=== PATIENT | female | born 1950 | race Caucasian/White ===

== ENCOUNTER 2016-10-03 11:01 | Inpatient (IN) | payer MEDICARE ==
[~2016-10-03] VITALS: Ht 170.2 cm; Wt 67.4 kg
[~2016-10-03 11:01] MED LIST: HYDR50CA3 PO; LEVO125T6 PO; OXYC10TA8 PO; SERT100T9 PO; SERT50TA9 PO
[2016-10-03 11:07] VITALS: BP 140/85; PULSE 80; RESP 16; O2SAT 96
[2016-10-03] MEDS ORDERED: DONE10TA42 PO (11:17)
[2016-10-03] MEDS ORDERED: OXYC15TA79 PO (11:17)
[2016-10-03] MEDS ORDERED: HYDR-656 PO ×2 (11:17→18:01)
[2016-10-03] MEDS ORDERED: BUSP15TA3 PO (11:17)
[2016-10-03] MEDS ORDERED: FLUT16SP NOSTRIL (11:17)
--- NOTE | 2016-10-03 11:48 | ED.REPORT ---
HPI-Seizure Date of Service Oct 03, 2016 ED Provider: Danie Olmedo PA-C Stefany is a 65-year-old female with a history of dementia, hypothyroidism, depression, anxiety, back pain who presents with a chief complaint of confusion and a possible seizure. Patient's daughter reports that the patient appeared to be very confused this morning at approximately 0630, was incontinent of urine and pointed out a laceration to her tongue and lip. No seizure was witnessed. EMS was contacted and the patient was assessed by paramedics. Transport was declined. Daughter reports increased confusion continues until presentation. The patient has had declining cognition for approximately the last year, but she is thought to be slightly worse than baseline of presentation. She also has a history of possible seizures. Patient admits to a wet cough but denies other complaints including numbness, tingling, weakness, fever, chills, urinary symptoms, abdominal pain, vomiting, diarrhea, chest pain , headache, vision changes. Admits "smoking a lot of marijuana" but denies other drugs or alcohol. Daughter reports the patient has smoked marijuana for many years, and is unaltered from baseline. Review of records indicates a normal ECG approximately one month ago and a normal MRI approximately 6 months ago. Daughter reports she is under great deal of stress since she lost her 3 years ago and has lost 200 pounds in that time. Nursing Notes Stated Complaint: CONFUSED, LACERATION IN TONGUE Chief Complaint: Neuro Symptoms/ Deficits Nursing Notes Reviewed: Yes Allergies: Coded Allergies: codeine (Verified Allergy, Mild, SOME GI UPSET, 10/03/16) Scheduled Buspirone (Buspirone) 15 Mg Tablet 15 MG PO BID Donepezil (Donepezil) 10 Mg Tablet 20 MG PO HS Ferrous Sulfate (Ferrous Sulfate) 325 Mg Tablet 325 MG PO DAILY Fluticasone Propionate (Fluticasone Propionate Nasal) 16 Gm [place].susp 1 SPRAYS NOSTRIL DAILY Levothyroxine (Levothyroxine) 125 Mcg Tablet 125 MCG PO DAILY Sennosides/Docusate Sodium (Stool Softener-Stimulant Lax) 8.6 Mg-50 Mg Tablet 1 EACH PO DAILY Sertraline HCl (Sertraline) 100 Mg Tablet 100 MG PO BID hydrOXYzine Hcl (HydrOXYzine Hcl) 25 Mg Tablet 25 MG PO QAM Scheduled PRN hydrOXYzine Hcl (HydrOXYzine Hcl) 25 Mg Tablet 25 MG PO BID PRN PRN prn oxyCODONE (oxyCODONE) 15 Mg Tablet 15 MG PO TID PRN PRN For Pain General Time Seen by Provider: 11:19 Chief Complaint Chief Complaint: Other (confusion, possible seizure.) Past Medical History Past Medical History Reports: Depression Smoking History Current Every Day Smoker Review of Systems General: Denies fever, chills, malaise. HEENT: Denies congestion, headache, sore throat. Respiratory: Admits cough. Denies dyspnea,, shortness of breath, wheezing. Cardiovascular: Denies chest pain, palpitations. Gastrointestinal: Denies vomiting, diarrhea, abdominal pain. Genitourinary: Denies frequency, urgency, dysuria, hematuria. Otherwise as noted in HPI. Physical Exam General: Well appearing, well developed, well nourished, no acute distress. Head: Atraumatic, normocephalic. No mastoid tenderness. Eyes: No scleral icterus or injection. No discharge. PERRL. Vision grossly intact. Ears: Pinna and tragus nontender with manipulation. External auditory canal patent, atraumatic and without discharge. Tympanic membrane nascimento, shiny and translucent without fluid, bulging, retraction or perforation. Hearing grossly intact. Nose: Symmetrical, nares patent without discharge. No frontal or maxillary sinus tenderness. Mouth/pharynx: Small ecchymosis on the inner right upper lip. Approximately 1 cm laceration on the superior aspect of the right tongue with a corresponding ecchymosis on the inferior aspect. Maxillary dentures present, mucus membranes moist. Mandibular molars are absent. Tonsils 2+ and symmetrical, uvula midline. Pharynx noninjected, no cobblestoning or discharge. Voice clear. Neck: No tenderness or lymphadenopathy. Trachea midline. Respiratory: Regular rate and rhythm. Breath sounds present, clear to auscultation and equal bilaterally. No respiratory distress. No increased work of breathing, speaks in complete sentences. Cardiovascular: Regular rate and rhythm, without murmur, gallop or rub. No pedal edema. Gastrointestinal: Abdomen flat and non-tender without guarding or rebound. Bowel sounds normoactive. Skin: Warm and dry. Neurological: Normal gait, toe gait, Romberg. Negative pronator drift. Finger- nose normal. Cranial nerves: Vision grossly intact, PERRL, EOMI. Facial motion symmetrical, sensation to light touch over forehead, maxilla and mandible present and equal B /L. Voice clear and fluent, no drooling/pooling of saliva, uvula rises midline. Psychological: Intermittently disoriented, initially asking "where am I?" And referring to a alley tender on the wall when asked about her symptoms saying "I just do not be part of that". He has difficulty explaining why she is there. Later in the interview, however she becomes Alert and oriented x3 with Speech appropriate, linear and logical. Behavior appropriate. Initial Vital Signs Vital Signs (First) Date Time Temp Pulse Resp B/P Pulse Ox O2 Delivery O2 Flow Rate FiO2 10/03/16 11:07 36.2 80 16 140/85 96 Room Air 10/03/16 16:00 3 Initial VS: Reviewed, Vital signs normal Interpretation & Diagnostics Lab Results Interpretation Result Diagram: 10/03/16 1200 10/03/16 1200 Test 10/03/16 11:41 10/03/16 11:49 10/03/16 12:00 10/03/16 15:14 Urine Opiates Screen Negative Urine Methadone Screen Negative Urine Barbiturates Screen Negative Urine Amphetamines Screen Negative Urine Benzodiazepines Screen Negative Urine Cocaine Metabolite Screen Negative Urine Cannabinoids Screen Positive Urine Color Yellow (YELLOW) Urine Appearance Hazy (CLEAR,HAZY) Urine pH 6.5 (5.0-8.0) Urine Specific [place] 1.020 (1.003-1.035) Urine Protein Negativemg/dL (NEG,TRACE) Urine Glucose (UA) Negativemg/dL (NEGATIVE) Urine Ketones Negativemg/dL (NEGATIVE) Urine Occult Blood Trace (NEGATIVE) Urine Nitrite Negative (NEGATIVE) Urine Bilirubin Negative (NEGATIVE) Urine Urobilinogen Normalmg/dL (NORMAL) Urine Leukocyte Esterase Trace (NEGATIVE) Urine RBC 0-2/hpf (0-2) Urine WBC 6-10/hpf (0-5) Urine Epithelial Cells Occasional/hpf (NONE-MOD) Urine Crystals None seen (NONE SEEN) Urine Bacteria Moderate/hpf (NONE-FEW) Urine Hyaline Casts None/lpf (NONE) Urine Granular Casts None seen (NONE SEEN) Urine Waxy Casts None seen (NONE SEEN) Urine Red Blood Cell Casts None seen (NONE SEEN) Urine White Blood Cell Casts None seen (NONE SEEN) Urine Mucus Present (None Seen) Urine Trichomonas None seen (NONE SEEN) Urine Yeast None (NONE SEEN) Urinalysis Comment None Urine Culture Reflexed Indicated White Blood Count 20.3th/mm3 (3.8-10.1) Red Blood Count 5.98mil/mm3 (3.90-5.20) Hemoglobin 17.4g/dL (12.0-15.6) Hematocrit 48.8% (35.0-46.0) Mean Corpuscular Volume 81.6fL (81-100) Mean Corpuscular Hemoglobin 29.1pg (27.0-35.0) Mean Corpuscular Hemoglobin Concent 35.7% (32.0-37.0) Red Cell Distribution Width 17.6% (12.3-15.4) Platelet Count 317bil/L (150-400) Neutrophils (%) (Auto) 78.8% (40-74) Lymphocytes (%) (Auto) 11.7% (14-46) Monocytes (%) (Auto) 8.1% (4-12) Eosinophils (%) (Auto) 0.4% (0-5) Basophils (%) (Auto) 0.3% (0-3) Sodium Level 137mEq/L (134-144) Potassium Level 4.2mEq/L (3.5-5.2) Chloride Level 99mEq/L (97-108) Carbon Dioxide Level 20mmol/L (18-29) Blood Urea Nitrogen 16mg/dL (8-27) Creatinine 0.54mg/dL (0.57-1.00) Estimat Glomerular Filtration Rate 163mL/min (>59) Glucose Level 121mg/dL (60-99) Calcium Level 9.4mg/dL (8.5-10.1) Total Bilirubin 0.4mg/dL (0.0-1.2) Aspartate Amino Transf (AST/SGOT) 27U/L (0-50) Alanine Aminotransferase (ALT/SGPT) 17U/L (0-32) Alkaline Phosphatase 87U/L (25-165) Total Protein 6.9g/dL (6.4-8.4) Albumin 4.2g/dL (3.4-5.0) Procalcitonin 0.03ng/mL (0.00-0.08) Thyroid Stimulating Hormone (TSH) 1.350uIU/mL (0.450-4.500) Lactic Acid Level 8.7mmol/L (0.4-2.0) CT Head Interpretation PROCEDURE: CT BRAIN WITHOUT CONTRAST ([id number]) INDICATIONS: possible seizure IMPRESSION: No acute intracranial disease process. Re-Eval/Medical Decision Med Decision/Clinical Course I discussed this case with Dr. Trinidad. 65-year-old female with a chief complaint of confusion which appears to follow possible episode of seizure. Daughter reports the patient emerged from her room quite confused, having been incontinent of urine and bit her tongue approximately 6 hours prior to presentation. Daughter reports increased confusion since that time. Patient has been treated for declining cognition and possible seizures for the last year or so. She is followed by Dr. Flores for neurology. Records indicate a normal MRI approximately 6 months ago as well as normal EEG approximately one month ago. The patient is taking Donepezil. She has no other physical complaints. Admits to smoking "a lot of" marijuana. The patient is initially extremely confused, asking where she is, incorporating the content of a alley tender on the wall into her responses. She appears not recalling events that led up to her presentation. This however seems to pass quite quickly. She soon becomes A&O 3 and able to answer history questions for herself. She does not, however recall the events of this morning. She states that she was going to bed, and then coming to the hospital. She does not recall interacting with paramedics or having a seizure this morning. Physical examination reveals a small laceration on the right side of her tongue as well as an ecchymosis on her right upper lip. Neurological examination is normal. CBC reveals leukocytosis at 20.3 with left shift. it also reveals polycythemia with a hematocrit of 48.8 and hemoglobin of 17.4. RDW 17.6. Urinalysis reveals trace occult blood, trace leukocyte esterase 6-10 white blood cells, moderate bacteria. CMP is within acceptable limits. TSH is normal. Head CT is normal. Patient had an episode of rigidity and shaking in the emergency department followed by extended period of agitation and disorientation. She was seen by Dr. Trinidad. Treated with first 2 mg a total of 4 mg of lorazepam as well as 5 mg of Haldol. Ordered a lactate, blood cultures. Provided a dose of Zosyn out of concern for possible urosepsis. Lactate returned 8.7. We believe this is urosepsis versus dementia, epilepsy. Discussed the case with hospitalist who accepts admission. Re-Evaluation/Progress #1: Time of Eval: 13:40 Re-Evaluation/Progress Note: Patient requires repeated reorientation to recent events. Complains of abdominal pain, which she had not before. Right upper quadrant tenderness continues. She requests "something for pain" Re-Evaluation/Progress #2: Time of Eval: 15:05 Re-Evaluation/Progress Note: Patient had a brief episode of global rigidity and tremors followed by approximately 10 minutes of agitation and disorientation. Prior to this episode she stated "I need something for my anxiety." Episode resolved with first 2 mg then a total of 4 mg of lorazepam as well as 5 mg of Haldol. Initiated IV, blood cultures, lactate, placed patient on monitor. Discharge & Departure Referrals: Saw Almonte MD (PCP) EDSupervising Provider for APC: Solomon Esteban MD Attending Statement I discussed case with MICHAEL Olmedo. I saw and evaluated patient independently. In brief, 65-year-old female admitted for altered mental status, sepsis, presumed urinary source. Admit hospitalist. 30 mL's per kilo bolus given. Zosyn for urinary source. Danie Olmedo PA-C Oct 03, 2016 11:48 Solomon Esteban MD Oct 03, 2016 18:18
[2016-10-03 12:01] LABS: APPEARANCE,URINE HAZY (CLEAR,HAZY); COLOR,URINE YELLOW (YELLOW); OCCULT BLOOD,URINE TRACE (NEGATIVE); PH,URINE 6.5 (5.0-8.0); UROBILINOGEN,URINE NORMAL (NORMAL)
[2016-10-03 12:36] LABS: BASOPHILS % (AUTO) 0.3 % (0-3); EOSINOPHILS % (AUTO) 0.4 % (0-5); MONOCYTES % (AUTO) 8.1 % (4-12); Mean Corpuscular Hemoglobin 29.1 pg (27.0-35.0); Mean Corpuscular Volume 81.6 fL (81-100); NEUTROPHILS % (AUTO) 78.8 % (40-74); Platelet Count 317 bil/L (150-400)
[2016-10-03] MEDS ORDERED: TdaP Vaccine 0.5 mL Inj IM ONE (12:55)
--- NOTE | 2016-10-03 13:15 | DRSVH ---
PROCEDURE: CT BRAIN WITHOUT CONTRAST ([id number]) INDICATIONS: possible seizure TECHNIQUE: Noncontrast 4.5 mm thick angled axial sections acquired from the foramen magnum to the vertex, with c oronal reformats. COMPARISON: [facility], MR, MR BRAIN WO CON, 04/21/2016, 10:48. FINDINGS: Image quality: Excellent. CSF spaces: Basal cisterns are patent. No extra-axial fluid collections. Ventricles are normal in size and shape. Brain: No midline shift. No intracranial masses or hemorrhage. Foreman-white matter interface is norm al. Skull and face: Calvarium and visualized facial bones are intact, without suspicious lesions. Incide ntal note of hyperostosis frontalis. Sinuses: Visualized sinuses and mastoids are clear. IMPRESSION: No acute intracranial disease process. Dictated by: Marbella Oro MD, PhD on 10/03/2016 at 13:09 Approved by: Marbella Oro MD, PhD on 10/03/2016 at 13:13
[2016-10-03] MEDS ORDERED: Haloperidol 5 mg/mL Inj ONE (14:58)
[2016-10-03] MEDS ORDERED: Piperacillin-Tazo 3.375 Gm Inj 3.375 GM in Dextrose 5% Minibag Plus 50 ML IV ONE (15:00)
[2016-10-03 16:00] VITALS: BP 120/59; PULSE 80; RESP 20; O2SAT 94
[2016-10-03] MEDS ORDERED: 0.9% Sodium Chloride 1,000 ML IV SCH (16:45)
[2016-10-03] MEDS ORDERED: FERR-83 PO (18:01)
[2016-10-03] MEDS ORDERED: SENN-169 PO (18:01)
[2016-10-03] MEDS ORDERED: SERT100T9 PO (18:01)
[2016-10-03] MEDS ORDERED: Alum-Mag Hydrox-Simeth 30 mL Suspension PO PRN (18:05)
[2016-10-03] MEDS ORDERED: Polyethylene Glycol (PEG) 17 Gm Powder PO PRN (18:05)
[2016-10-03] MEDS ORDERED: Ondansetron 2 mg/mL 2 mL Inj IVPUSH PRN (18:05)
[2016-10-03 19:09] VITALS: BP 131/63; PULSE 89; RESP 20; O2SAT 97
--- NOTE | 2016-10-03 20:00 | NUR ---
Arrival Pt arrived on the floor awake, restless and confused. Oriented to self and her birthday but confuse at times. Family came up and able to provide h&p for patent. Terence alarm on.
[2016-10-03 20:12] VITALS: BP 124/76; PULSE 83; RESP 18; O2SAT 95
[2016-10-03 20:14] VITALS: PULSE 73
[2016-10-03 20:16] VITALS: BP 124/76; PULSE 83; RESP 18; O2SAT 95
[2016-10-03] MEDS: 0.9% Sodium Chloride 1,000 ML IV SCH (20:54)
[2016-10-03] MEDS ORDERED: hydrOXYzine Pamoate 25 mg Capsule PO PRN (21:15)
--- NOTE | 2016-10-03 21:27 | PCM.HPMED ---
Subjective Date of Service Oct 03, 2016 Primary Provider: Admitting Physician: Sanjay Arteaga MD Primary Care Physician: Saw Almonte MD Attending Physician: Sanjay Arteaga MD Chief Complaint: AMS . Seizure History of Present Illness: Most informations are retrieved form medical record and per my conversation with the ER Physician . Patient is unable to provide any information at this time Stefany is a 65-year-old female with a history of dementia, hypothyroidism, depression, anxiety, back pain who presents with a chief complaint of confusion and a possible seizure. Patient's daughter reports that the patient appeared to be very confused this morning at approximately 0630, was incontinent of urine and pointed out a laceration to her tongue and lip. No seizure was witnessed. EMS was contacted and the patient was assessed by paramedics. Transport was declined. Daughter reports increased confusion continues until presentation. The patient has had declining cognition for approximately the last year, but she is thought to be slightly worse than baseline of presentation. She also has a history of possible seizures. Patient admits to a wet cough but denies other complaints including numbness, tingling, weakness, fever, chills, urinary symptoms, abdominal pain, vomiting, diarrhea, chest pain , headache, vision changes. Admits "smoking a lot of marijuana" but denies other drugs or alcohol. Daughter reports the patient has smoked marijuana for many years, and is unaltered from baseline. Review of records indicates a normal ECG approximately one month ago and a normal MRI approximately 6 months ago. Daughter reports she is under great deal of stress since she lost her 3 years ago and has lost 200 pounds in that time. Review of Systems: Review of system cannot be obtain . Patient is very confused , somnolent and possibly post -ictal Allergies Coded Allergies: codeine (Verified Allergy, Mild, SOME GI UPSET, 10/03/16) Home Medications Buspirone (Buspirone) 15 Mg Tablet 15 MG PO BID Donepezil (Donepezil) 10 Mg Tablet 20 MG PO HS Ferrous Sulfate (Ferrous Sulfate) 325 Mg Tablet 325 MG PO DAILY Fluticasone Propionate (Fluticasone Propionate Nasal) 16 Gm [place].susp 1 SPRAYS NOSTRIL DAILY Levothyroxine (Levothyroxine) 125 Mcg Tablet 125 MCG PO DAILY Sennosides/Docusate Sodium (Stool Softener-Stimulant Lax) 8.6 Mg-50 Mg Tablet 1 EACH PO DAILY Sertraline HCl (Sertraline) 100 Mg Tablet 100 MG PO BID hydrOXYzine Hcl (HydrOXYzine Hcl) 25 Mg Tablet 25 MG PO QAM Scheduled PRN hydrOXYzine Hcl (HydrOXYzine Hcl) 25 Mg Tablet 25 MG PO BID PRN PRN prn oxyCODONE (oxyCODONE) 15 Mg Tablet 15 MG PO TID PRN PRN For Pain PMH Depression, Seizure? , Dementia Surgical History ankle surgery. Family History Unable to obtain Social History Hx Alcohol Use: Yes ("occasional") Hx Substance Use: Yes (daily marijuana) Smoking Status: Current Every Day Smoker (Patient smoke marihuana 4-5 times daily ) Exam Vital Signs Vital Sign - Last Date Time Temp Pulse Resp B/P Pulse Ox O2 Delivery O2 Flow Rate FiO2 10/03/16 20:16 36.9 83 18 124/76 95 Room Air 10/03/16 16:00 3 Exam General: Well nourished female. Ill appearing, [place], no acute distress. Head: Atraumatic, normocephalic.Sclerae is anicteric Eyes: PERRL. Mouth : Moist oral mucosae . Neck: No tenderness or lymphadenopathy. Trachea midline. Chest : Normal respiratory effort .No deformity, no chest wall tenderness Lung : . Breath sounds present, clear to auscultation and equal bilaterally. Heart : S1S2, rate and rhythm Abdomen : flat and non-tender without guarding or rebound. Bowel sounds normoactive. Ext : No edema, no cyanosis Neurological: Confused and drowsy . Patient moves all extremities Skin: Warm and dry.No rash, no ulcer Lab and Diagnostics Result Diagram: 10/03/16 1200 10/03/16 1200 X-Rays, CTs and MRIs Head CT scan reviewed : No acute intracranial disease process. Assessment & Plan 1. Acute toxic encephalopathy 2. Sepsis : source UTI 3. UTI 4. Seizure 5. Cannabinoids Abuse 6. Major Depression. Telemetry monitoring . Seizure and fall precaution . Start Keppra for seizure prophylaxis . Consult Neurology . Patient has negative Ct scan on presentation. MRI done recently as investigation regarding dementia was negative Ativan PRN for seizure Start IVF : NS at 100 ml/hr hydration. Ceftriaxone 1 gr IV daily for UTI. Patient received Zosyn in ER x one dose . Blood culture and urine culture are in process Heparin for DVT prophylaxis . Home medications reviewed and reconciled May need psychiatric evaluation for major depression , preferably as outpatient Plan of care to be adjusted as per clinical course VTE Prophylaxis: Sub-Q Heparin (Unfractionated) Resuscitation Status: CPR: Attempt Resuscitation Time spent 75 minutes Sanjay Arteaga MD Oct 03, 2016 21:27
[2016-10-03] MEDS ORDERED: cefTRIAXone Inj 1,000 MG in Dextrose 5% Minibag Plus 50 ML IV SCH (21:45)
[2016-10-03] MEDS: BusPIRone 15 mg Dividose Tablet PO SCH (22:37)
[2016-10-04 00:48] VITALS: BP 112/68; PULSE 71; O2SAT 95
[2016-10-04] MEDS: Heparin 5,000 Unit/mL Inj SUBQ SCH ×3 (00:55→17:23)
[2016-10-04 02:34] VITALS: PULSE 68
[2016-10-04] MEDS ORDERED: levETIRAcetam Inj 1,000 MG in IV Premix 1 EACH IV ONE (03:35)
[2016-10-04 03:43] LABS: BASOPHILS % (AUTO) 0.2 % (0-3); EOSINOPHILS % (AUTO) 0.9 % (0-5); MONOCYTES % (AUTO) 10.3 % (4-12); Mean Corpuscular Hemoglobin 28.9 pg (27.0-35.0); NEUTROPHILS % (AUTO) 72.9 % (40-74); Platelet Count 238 bil/L (150-400)
[2016-10-04] MEDS: 0.9% Sodium Chloride 1,000 ML IV SCH ×2 (04:02→08:04)
[2016-10-04 04:32] VITALS: BP 112/70; PULSE 68; O2SAT 95
--- NOTE | 2016-10-04 06:08 | NUR ---
Telemetry/Mentation Pt oriented to self,family and answers questions appropriately most of the times. She gets confuse at times and needs reorientation. She does not remember to use call light for assistance and can be impulsive at times. [place] bed alarm on. Telemetry SR in 60s. K level this am 3.3. made aware with new order noted.
[2016-10-04] MEDS ORDERED: Potassium Chloride 20 mEq SR Tablet PO ONE (06:10)
[2016-10-04] MEDS: Fluticasone 0.05% 15 Spray/2 Gm 16 Gm Nasal Spray NOSTRIL SCH ×2 (08:30→08:41)
[2016-10-04] MEDS: BusPIRone 15 mg Dividose Tablet PO SCH ×2 (08:43→20:25)
[2016-10-04] MEDS: Senna-Docusate 8.6-50 mg Tablet PO SCH (08:43)
[2016-10-04] MEDS: hydrOXYzine Pamoate 25 mg Capsule PO SCH (08:43)
[2016-10-04 09:34] VITALS: BP 148/84; PULSE 70; RESP 22; O2SAT 94
--- NOTE | 2016-10-04 11:34 | NUR ---
Wound Care Asked to see this pleasant 65 yo female admitted after seizure, area of blanchable erythema at left elbow is 5 cm in circumference likely secondary to her fall during seizure, does not have wound care needs at this time.,
--- NOTE | 2016-10-04 13:24 | CONS ---
[address] [address] CONSULTATION REPORT PATIENT: LUCI BARBOZA : 1950 MR#: [id number] ADMIT: 10/03/2016 JOB ID: [id number] DATE OF SERVICE: 10/04/2016 NEUROLOGY CONSULTATION: REQUESTING PHYSICIAN: Dr. Connie Dockery for seizures. HISTORY OF PRESENT ILLNESS: The patient is a 65-year-old female, who I have seen once as an outpatient following an isolated seizure. At the time there was progressive memory impairment also noted, which was confirmed by her daughter, Mary. Today she presents with a witnessed generalized seizure following an episode of tongue biting and confusion at [facility] where she lives. Her daughter, Dianelys Meredith, is at the bedside and helps to provide the history of the events. She has been having fluctuating confusional spells throughout the day, possibly more than usual. She was called by [facility] after her mother was noted to be confused and have a lacerated tongue with loss of urine at approximately 6:30 in the morning. Although EMS was contacted, the patient declined to be transported. Her daughter stayed with her the rest of the morning convincing her mother to come to the hospital. Two hours after arrival, the patient reported that she needed something for her anxiety and shortly afterward had an episode of witnessed rigidity and tremors lasting approximately 10 minutes after which she was agitated and disoriented. Her daughter reports this as a generalized tonic-clonic seizure. She is a CARE NURSE RN. Laboratory studies showed elevated lactic acid and evidence of a urinary tract infection. The patient has history of frequent UTIs. Her white count was also noted to be elevated. The patient was loaded with levetiracetam 1000 mg. She has been somnolent but otherwise no additional seizures or confusional episodes have been witnessed. A neurology consultation was requested to manage seizures. The patient had an EEG completed as an outpatient on September 11, 2016 which I have personally read as negative. Previous MRI of the brain completed on April 21, [address] Almonte showed no acute intracranial process. A head CT was done in the emergency department which shows no acute findings. The patient had an episode similar to the one described yesterday one year ago with tongue biting and urination but no additional seizures since then or prior to that. Her past medical history, social history and family history were reviewed in the note dated June 27, 2016 from [facility]. No changes to report. SOCIAL HISTORY: She does use daily marijuana which was noted on her tox screen today. HOME MEDICATIONS: 1. Buspirone. 2. Donepezil 20 mg daily. 3. Iron. 4. Fluticasone nasal spray. 5. Levothyroxine. 6. Senna. 7. Sertraline. 8. Hydralazine. HOSPITAL MEDICATIONS: Include: 1. 1000 mg of levetiracetam. 2. Ceftriaxone. 3. P.r.n. lorazepam and oxycodone. REVIEW OF SYSTEMS: Is as per the history of present illness. All other systems were reviewed and reported as negative. She does have a slight abrasion on her left elbow noted in the chart but not complained by the patient. The patient is not complaining of any pain. All other systems were reviewed and reported as negative. PHYSICAL EXAMINATION: The patient is somnolent and needs to be aroused by calling her name and turning the lights on. Vital Signs show a slightly elevated blood pressure 148/84, pulse 78, temperature afebrile. Respiratory rate 22, pulse oximetry 94% on room air. No elevation in blood pressure noted since arrival. Head: Normocephalic, atraumatic. No evidence of carotid bruits. Lungs: Clear to auscultation. Cardiac: Regular rate and rhythm. No murmurs. Extremities: No edema, rash or lesions. NEUROLOGIC EXAMINATION: The patient arouses and responds appropriately. Answers all questions without difficulty. No confusion noted. Language and speech intact and fluent. Formal memory testing not performed. She opens her eyes if requested. Otherwise remains lying in the bed comfortably with eyes closed. Cranial nerves: Pupils equally reactive to light and accommodation. Extraocular movements intact. No facial asymmetry. Sensation intact on the face bilaterally. Tongue midline. Palate raises symmetrically. SCM and shoulder shrug, as well as hearing appear to be intact bilaterally. Motor strength: 5/5 strength upper and lower extremities. No atrophy or extra movement. Deep tendon reflexes: 1+ throughout. Plantar reflex flexor. Tone: Intact upper and lower extremities. Sensation: Intact to soft touch and pinprick. Coordination: Finger to nose, heel to montes intact. Gait: Deferred due to somnolence. LABORATORY STUDIES: As per the history of present illness. Please see full report for detail. IMAGING STUDIES: Brain CT reviewed on the PAC system. Read as no acute intercranial process. ASSESSMENT AND RECOMMENDATIONS: The patient is a 65-year-old female with history of a possible seizure 1 year ago with tongue biting and confusion presenting after a similar episode yesterday morning followed by a witnessed generalized tonic-clonic seizure. The patient is found to have a urinary tract infection. Although the urinary tract infection may have lowered the seizure threshold, this is her second seizure. Therefore, antiepileptic medications are indicated. I agree with levetiracetam which she appears to be tolerating without side effects or problems. I recommend continuing levetiracetam 1000 mg two times daily. Whether this is entirely responsible for the patient's confusional episodes or urinary tract infections and dementia are contributing as well is not entirely clear. Clinical monitoring for improvement in symptoms is recommended. I will arrange for the patient to have a follow up appointment in the clinic where she has been seen previously. I will coordinate this with her daughter, Dianelys, at her request. She also states that she will be managing her mother's medications for her. I will send the outpatient prescription to [facility], for 1000 mg two times daily Keppra. I encouraged Dianelys to call if there are any problems with those medications once she is discharged. I do not see any reason for an MRI of the brain, since she had one in last year and she has no focal findings on her examination. I will sign off for now. Please call if needed. Thank you for this consultation. JASON
[2016-10-04] MEDS: levETIRAcetam 500 mg Tablet PO SCH ×2 (13:41→20:26)
[2016-10-04 14:48] VITALS: BP 124/76; PULSE 69; RESP 18; O2SAT 93
--- NOTE | 2016-10-04 15:55 | NUR ---
Somnolent/Mentation Patient sleeping most of shift. Will awaken with light stimuli, but attempts to quickly return to sleep. Patient alert and oriented x3 when awake. Appropriate with behavior.
--- NOTE | 2016-10-04 16:24 | NUR ---
Social Work-attempted assessment: Data:EMR Reviewed. Pt is a 65 y/o female who was admitted on 10/03/16 for sepsis per H&P. Pt's insurance is [facility] and PCP is MD Suzy. SW attempted to see pt today, but pt sleepy and not able to stay awake during assessment. SW will follow up with assessment and DPOA/advanced directive when appropriate. SW will continue to follow. Assessment:Pt who is independent at baseline. Plan:SW to follow up with pt tomorrow to complete assessment.SW will continue to follow. ELIUD Thomas
--- NOTE | 2016-10-04 19:24 | PCM.PNMED ---
Subjective Date of Service Oct 04, 2016 Amilcar Mccall is a 65-year-old female with a history of dementia, hypothyroidism, depression, anxiety, back pain who presents with a chief complaint of confusion and a possible seizure. This morning, Ms. Lauren is drowsy but answers questions. She is oriented to person, place, and time. Her daughter reports that her mother had 2 seizures yesterday. The first was not witnessed but she was confused, her tongue had a hole from her tooth, and she was incontinent of urine. The second episode was witnessed and occurred in the emergency department. Her daughter states that the patient's whole body was convulsing , unresponsive, and she foamed at the mouth for almost 10 minutes. Exam Vital Signs Vital Sign - Last Date Time Temp Pulse Resp B/P Pulse Ox O2 Delivery O2 Flow Rate FiO2 10/04/16 09:34 36.7 70 22 148/84 94 Room Air 10/03/16 16:00 3 Intake and Output 10/03/16 10/03/16 10/04/16 Cumulative From/Thru 15:00 23:00 07:00 10/03/16 11:07 - 10/04/16 06:21 Intake Total 1000 ml 988 ml 1988 ml Output Total 800 ml 800 ml Balance 1000 ml 188 ml 1188 ml Intake Oral 100 ml 100 ml IV Total 1000 ml 888 ml 1888 ml Output Urine Total 800 ml 800 ml Exam General: Drowsy but responds to verbal stimuli appropriately, well-developed, well-nourished HEENT: Normocephalic, atraumatic. Neck: Supple with full range of motion. Cardiovascular: Regular rate and rhythm with no murmurs, rubs, or gallops appreciated Pulmonary: Clear to auscultation bilaterally with no crackles, wheezes, or rhonchi. Normal respiratory effort with no use of accessory muscles. Abdomen: Bowel tones present. Soft, nontender, nondistended. No hepatosplenomegaly or masses appreciated. Extremities: No clubbing, cyanosis, edema, or lymphadenopathy appreciated. Skin: Bruise on left elbow but otherwise, normal temperature, turgor, and texture Neurological: Cranial nerves grossly intact. Normal muscle strength, tone, and bulk. Psychiatric:Drowsy and oriented to person, place, and time. IVs and Medications Medications Reviewed: Medications were reviewed in detail Lab and Diagnostics Result Diagram: 10/04/16 0335 10/04/16 0335 X-Rays, CTs and MRIs Head CT scan reviewed : No acute intracranial disease process. Assessment & Plan 1. Probable seizure disorder, acute on chronic, present on admission. Active. -Reported prior 1 episode of unwitnessed seizure and 2 possible seizures yesterday -Patient has negative Ct scan on presentation. MRI done recently as investigation regarding dementia was negative -EEG in 08/2016 was normal -Neurology consulted and following. Her time and recommendations are appreciated. -Keppra 1000 mg BID and patient will need a levetiracetam checked level in 1 week -Telemetry monitoring -Seizure and fall precaution . -Ativan as needed for seizure -Monitor for signs of infection in case patient has aspirated during seizure episodes -NS at 100 ml/hr hydration. 2. Unlikely, urinary tract infection, acute, present on admission. Active. -UA showed trace leukocyte esterase and moderate bacteria but culture grew mixed normal alireza. Patient has reported history of UTIs. Patient is afebrile and does not have tachycardia. WBC is likely elevated secondary to seizures. -Urinary incontinence is likely secondary to a seizure -Patient has received ceftriaxone IV 1000 mg and was given Zosyn IV once in the emergency department -Discontinue antibiotics as patient likely does not have a urinary tract infection but if concern returns, will resume tomorrow morning. -Monitor for symptoms once patient is more alert 3. Hypokalemia, acute -Potassium 3.3 this morning and replaced with 40 meq potassium chloride -Monitor with morning lab 4. Dementia, chronic -Continue donepezil 5. Hypothyroidism -TSH within normal limits -Continue levothyroxine 6. Cannabinoids Abuse 7. Major Depression with anxiety -Continue buspirone, sertraline, and hydroxyzine -May need psychiatric evaluation for major depression as an outpatient Heparin for DVT prophylaxis . Likely discharged in the next 1-2 days pending continued improvement and no signs or symptoms of infection VTE Prophylaxis: Sub-Q Heparin (Unfractionated) Resuscitation Status: CPR: Attempt Resuscitation Attending Statement The patient was seen and examined together with Resident / House-staff on and I agree with the history, exam and plan as outlined in the note above. Apryl Gongora DO Oct 04, 2016 13:49 Filipe Alston Oct 05, 2016 17:09
[2016-10-04 20:46] VITALS: BP 143/87; PULSE 83; RESP 18; O2SAT 94
[2016-10-05] MEDS: Heparin 5,000 Unit/mL Inj SUBQ SCH ×2 (00:15→09:17)
[2016-10-05] MEDS: 0.9% Sodium Chloride 1,000 ML IV SCH ×2 (00:19→09:54)
[2016-10-05 04:40] VITALS: BP 137/70; PULSE 68; RESP 16; O2SAT 94
--- NOTE | 2016-10-05 06:45 | NUR ---
Sleep Patient slept throughout the night. denies pain. IVF infusing. bed alarm in place.
[2016-10-05 07:46] LABS: BASOPHILS % (AUTO) 0.4 % (0-3); EOSINOPHILS % (AUTO) 1.2 % (0-5); MONOCYTES % (AUTO) 8.6 % (4-12); Mean Corpuscular Hemoglobin 28.9 pg (27.0-35.0); Mean Corpuscular Volume 82.4 fL (81-100); NEUTROPHILS % (AUTO) 69.5 % (40-74); Platelet Count 236 bil/L (150-400)
[2016-10-05] MEDS: Fluticasone 0.05% 15 Spray/2 Gm 16 Gm Nasal Spray NOSTRIL SCH (09:15)
[2016-10-05] MEDS: Senna-Docusate 8.6-50 mg Tablet PO SCH (09:16)
[2016-10-05] MEDS: hydrOXYzine Pamoate 25 mg Capsule PO SCH (09:16)
[2016-10-05] MEDS: BusPIRone 15 mg Dividose Tablet PO SCH (09:16)
[2016-10-05] MEDS: levETIRAcetam 500 mg Tablet PO SCH (09:16)
[2016-10-05] MEDS ORDERED: KEP500TA PO (13:41)
--- NOTE | 2016-10-05 13:46 | PCM.DIMED ---
Discharge Instructions Date of Service Oct 05, 2016 Dates of Hospitalization Oct 03, 2016 at 19:00 Diet Heart Healthy Activity Limited until seen by PCP Call your provider Fever or Chills, Shortness of breath, Bleeding, Chest pain, Excessive diarrhea, Weakness (unilateral), Other (seizure) Patient Instructions Start taking levetiracetam (Keppra) 1000 mg twice per day. You should have a levetiracetam level checked in 1 week. Follow up with Dr. Oscar in 1 week. Contact her office for your appointment time. Continue all other medications as prescribed. Follow up with your primary care provider in 1 week. Follow-up Provider: Saw Almonte MD Follow-up with PCP in: 1 week Provider: Rachael Oscar MD Follow-up in: 1 week Apryl Gongora DO Oct 05, 2016 13:46
--- NOTE | 2016-10-05 14:33 | NUR ---
Discharge Reviewed d/c instructions with pt including care notes and new prescriptions, pt signed and given originals, copies to chart. IV d/c intact, no tele. VS stable at d/c. All belongings packed by pt and daughter in room and taken with them. Pt taken off unit via WC to daughters car downstairs, daughter to drive pt home
--- NOTE | 2016-10-05 19:53 | PCM.DC.MED ---
Discharge Summary Date of Service Oct 05, 2016 Dates of Hospitalization Date of Hospital Admission Oct 03, 2016 at 19:00 Date of Discharge: Oct 05, 2016 Providers: Admitting Physician: Sanjay Arteaga MD Primary Care Physician: Saw Almonte MD Attending Physician: Sanjay Arteaga MD Diagnosis at Time of Discharge Diagnosis at Time of Discharge 1. Seizure disorder, acute on chronic 2. Ruled out urinary tract infection 3. Hypokalemia, acute 4. Dementia, chronic 5. Hypothyroidism, chronic 6. Cannabinoids Abuse 7. Major Depression with anxiety, chronic 8. Ruled out sepsis. 9. Acute toxic encephalopathy was ruled out Procedures XRay, CTs & MRIs PROCEDURE: CT BRAIN WITHOUT CONTRAST IMPRESSION: No acute intracranial disease process. Approved by: Marbella Oro MD, PhD on 10/03/2016 at 13:13 Brief History From the history and physical performed by Dr. Sanjay Arteaga on 10/03/2016: Most informations are retrieved form medical record and per my conversation with the ER Physician . Patient is unable to provide any information at this time Stefany is a 65-year-old female with a history of dementia, hypothyroidism, depression, anxiety, back pain who presents with a chief complaint of confusion and a possible seizure. Patient's daughter reports that the patient appeared to be very confused this morning at approximately 0630, was incontinent of urine and pointed out a laceration to her tongue and lip. No seizure was witnessed. EMS was contacted and the patient was assessed by paramedics. Transport was declined. Daughter reports increased confusion continues until presentation. The patient has had declining cognition for approximately the last year, but she is thought to be slightly worse than baseline of presentation. She also has a history of possible seizures. Patient admits to a wet cough but denies other complaints including numbness, tingling, weakness, fever, chills, urinary symptoms, abdominal pain, vomiting, diarrhea, chest pain , headache, vision changes. Admits "smoking a lot of marijuana" but denies other drugs or alcohol. Daughter reports the patient has smoked marijuana for many years, and is unaltered from baseline. Review of records indicates a normal ECG approximately one month ago and a normal MRI approximately 6 months ago. Daughter reports she is under great deal of stress since she lost her 3 years ago and has lost 200 pounds in that time. Hospital Course 1. Seizure disorder, acute on chronic, present on admission. Active. -Probable generalized tonic-clonic seizures -Reported prior 1 episode of unwitnessed seizure and 2 possible seizures yesterday -Patient had negative Ct scan on presentation. MRI done recently as investigation regarding dementia was negative -EEG in 08/2016 was normal -Neurology consulted and following. Her time and recommendations are appreciated. -Keppra 1000 mg BID and patient will need a levetiracetam checked level in 1 week -Telemetry monitoring -Seizure and fall precaution . -Ativan as needed for seizure -Monitor for signs of infection in case patient has aspirated during seizure episodes -NS at 100 ml/hr hydration. 2. Ruled out urinary tract infection, acute, present on admission. Active. -UA showed trace leukocyte esterase and moderate bacteria but culture grew mixed normal alireza. Patient had reported history of UTIs. Patient was afebrile and didnot have tachycardia. WBC was likely elevated secondary to seizures. On day of discharge, patient was awake and alert and reported that she did not have abdominal pain, dysuria, or urinary frequency. -Urinary incontinence was likely secondary to a seizure -Patient received ceftriaxone IV 1000 mg and was given Zosyn IV once in the emergency department -Discontinued antibiotics 3. Hypokalemia, acute, resolved. -Potassium 3.3 on 10/04/16 and replaced with 40 meq potassium chloride and increased to 3.5 on day of discharge. 4. Dementia, chronic -Continued donepezil 5. Hypothyroidism -TSH within normal limits -Continued levothyroxine 6. Cannabinoids Abuse 7. Major Depression with anxiety -Continued buspirone, sertraline, and hydroxyzine -May need further psychiatric evaluation for major depression as an outpatient 8. Ruled out sepsis. Patient did not have a source of infection and elevated WBC and lactic acid were secondary to above seizure. Her vital signs did not meet SIRS criteria. 9. Acute toxic encephalopathy was ruled out as patient has chronic dementia and was post-ictal in the emergency department. Exam Vital Signs (Last) Date Time Temp Pulse Resp B/P Pulse Ox O2 Delivery O2 Flow Rate FiO2 10/05/16 04:40 36.7 68 16 137/70 94 Room Air 10/03/16 16:00 3 Exam General: Awake and alert, well-developed, well-nourished HEENT: Normocephalic, atraumatic. Neck: Supple with full range of motion. Cardiovascular: Regular rate and rhythm with no murmurs, rubs, or gallops appreciated Pulmonary: Clear to auscultation bilaterally with no crackles, wheezes, or rhonchi. Normal respiratory effort with no use of accessory muscles. Abdomen: Bowel tones present. Soft, nontender, nondistended. Extremities: No clubbing, cyanosis, edema, or lymphadenopathy appreciated. Skin: Bruise on left elbow but otherwise, normal temperature, turgor, and texture Neurological: Cranial nerves grossly intact. Normal muscle strength, tone, and bulk. Psychiatric:Awake, alert, and oriented to person, place, and time. Test 10/03/16 11:41 10/03/16 11:49 10/03/16 12:00 10/04/16 03:35 Urine Opiates Screen Negative Urine Methadone Screen Negative Urine Barbiturates Screen Negative Urine Amphetamines Screen Negative Urine Benzodiazepines Screen Negative Urine Cocaine Metabolite Screen Negative Urine Cannabinoids Screen Positive Urine Color Yellow (YELLOW) Urine Appearance Hazy (CLEAR,HAZY) Urine pH 6.5 (5.0-8.0) Urine Specific [place]ney 1.020 (1.003-1.035) Urine Protein Negativemg/dL (NEG,TRACE) Urine Glucose (UA) Negativemg/dL (NEGATIVE) Urine Ketones Negativemg/dL (NEGATIVE) Urine Occult Blood Trace (NEGATIVE) Urine Nitrite Negative (NEGATIVE) Urine Bilirubin Negative (NEGATIVE) Urine Urobilinogen Normalmg/dL (NORMAL) Urine Leukocyte Esterase Trace (NEGATIVE) Urine RBC 0-2/hpf (0-2) Urine WBC 6-10/hpf (0-5) Urine Epithelial Cells Occasional/hpf (NONE-MOD) Urine Crystals None seen (NONE SEEN) Urine Bacteria Moderate/hpf (NONE-FEW) Urine Hyaline Casts None/lpf (NONE) Urine Granular Casts None seen (NONE SEEN) Urine Waxy Casts None seen (NONE SEEN) Urine Red Blood Cell Casts None seen (NONE SEEN) Urine White Blood Cell Casts None seen (NONE SEEN) Urine Mucus Present (None Seen) Urine Trichomonas None seen (NONE SEEN) Urine Yeast None (NONE SEEN) Urinalysis Comment None Urine Culture Reflexed Indicated Thyroid Stimulating Hormone (TSH) 1.350uIU/mL (0.450-4.500) Lactic Acid Level 0.6mmol/L (0.4-2.0) Magnesium Level 1.9mg/dL (1.6-2.6) Test 10/05/16 07:00 White Blood Count 11.0th/mm3 (3.8-10.1) Red Blood Count 5.51mil/mm3 (3.90-5.20) Hemoglobin 15.9g/dL (12.0-15.6) Hematocrit 45.4% (35.0-46.0) Mean Corpuscular Volume 82.4fL (81-100) Mean Corpuscular Hemoglobin 28.9pg (27.0-35.0) Mean Corpuscular Hemoglobin Concent 35.0% (32.0-37.0) Red Cell Distribution Width 16.7% (12.3-15.4) Platelet Count 236bil/L (150-400) Neutrophils (%) (Auto) 69.5% (40-74) Lymphocytes (%) (Auto) 19.7% (14-46) Monocytes (%) (Auto) 8.6% (4-12) Eosinophils (%) (Auto) 1.2% (0-5) Basophils (%) (Auto) 0.4% (0-3) Sodium Level 140mEq/L (134-144) Potassium Level 3.5mEq/L (3.5-5.2) Chloride Level 103mEq/L (97-108) Carbon Dioxide Level 21mmol/L (18-29) Blood Urea Nitrogen 14mg/dL (8-27) Creatinine 0.50mg/dL (0.57-1.00) Estimat Glomerular Filtration Rate 178mL/min (>59) Glucose Level 106mg/dL (60-99) Calcium Level 8.8mg/dL (8.5-10.1) Total Bilirubin 0.6mg/dL (0.0-1.2) Aspartate Amino Transf (AST/SGOT) 37U/L (0-50) Alanine Aminotransferase (ALT/SGPT) 20U/L (0-32) Alkaline Phosphatase 81U/L (25-165) Total Protein 6.0g/dL (6.4-8.4) Albumin 3.7g/dL (3.4-5.0) Procalcitonin 0.04ng/mL (0.00-0.08) Discharge Medications Discharge Medications Buspirone (Buspirone) 15 Mg Tablet 15 MG PO BID (Reported) Donepezil (Donepezil) 10 Mg Tablet 20 MG PO HS (Reported) Ferrous Sulfate (Ferrous Sulfate) 325 Mg Tablet 325 MG PO DAILY (Reported) Fluticasone Propionate (Fluticasone Propionate Nasal) 16 Gm [place].susp 1 SPRAYS NOSTRIL DAILY (Reported) Levetiracetam (Keppra) 500 Mg Tablet 1,000 MG PO BID Prescribed by: DEJA RO DO Levothyroxine (Levothyroxine) 125 Mcg Tablet 125 MCG PO DAILY (Reported) Sennosides/Docusate Sodium (Stool Softener-Stimulant Lax) 8.6 Mg-50 Mg Tablet 1 EACH PO DAILY (Reported) Sertraline HCl (Sertraline) 100 Mg Tablet 100 MG PO BID (Reported) hydrOXYzine Hcl (HydrOXYzine Hcl) 25 Mg Tablet 25 MG PO QAM (Reported) As needed hydrOXYzine Hcl (HydrOXYzine Hcl) 25 Mg Tablet 25 MG PO BID PRN PRN prn ( Reported) oxyCODONE (oxyCODONE) 15 Mg Tablet 15 MG PO TID PRN PRN For Pain (Reported) Followup Plan Discharge Diet: Heart Healthy Discharge Activity: Limited until seen by PCP Patient Instructions Start taking levetiracetam (Keppra) 1000 mg twice per day. You should have a levetiracetam level checked in 1 week. Follow up with Dr. Oscar in 1 week. Contact her office for your appointment time. Continue all other medications as prescribed. Follow up with your primary care provider in 1 week. Follow-up Provider: Saw Almonte MD Follow-up with PCP in: 1 week Provider: Rachael Oscar MD Follow-up in: 1 week Time spent 35 min Attending Statement The patient was seen and examined together with Resident/House-staff on 10/05/16 and I agree with the history, exam and plan as outlined in the note above. copies to: Rachael Oscar MD; Saw Almonte MD, Marissa L DO Oct 05, 2016 19:53 Filipe Alston Oct 16, 2016 19:52
== END 2016-10-05 14:34 | disposition home or self-care (01) | DRG 101 ==
LOC: SED 11:07 → MPC 19:00
PROVIDERS: ADMIT Internal Medicine; ATTEND Internal Medicine
DX: G40.909 Epilepsy, unspecified, not intractable, without status epilepticus (principal); F03.90 Unspecified dementia, unspecified severity, without behavioral disturbance, psychotic disturbance, mood disturbance, and anxiety; E03.9 Hypothyroidism, unspecified; F41.8 Other specified anxiety disorders; F32.9 Major depressive disorder, single episode, unspecified; F17.200 Nicotine dependence, unspecified, uncomplicated; R32 Unspecified urinary incontinence; F12.10 Cannabis abuse, uncomplicated; E87.6 Hypokalemia; Z87.440 Personal history of urinary (tract) infections